=== PATIENT | female | born 1980 | race Caucasian/White ===

== ENCOUNTER 2024-07-24 09:39 | Emergency (ER) | payer SELFPAY ==
[~2024-07-24] VITALS: Ht 162.6 cm; Wt 60.0 kg
[2024-07-24 09:50] VITALS: TEMP 98.2; O2SAT 100
[2024-07-24] MEDS ORDERED: BO1 TP (11:12)
[2024-07-24 11:26] VITALS: BP 118/80; PULSE 64; RESP 16; O2SAT 99
[2024-07-24] MEDS: BACITRACIN ZINC OINT UDPKT TOP ONE (11:26)
== END 2024-07-24 11:28 | disposition home or self-care (01) ==
LOC: ER 09:39
DX: S71.111A Laceration without foreign body, right thigh, initial encounter (principal); W26.8XXA Contact with other sharp object(s), not elsewhere classified, initial encounter; Y93.89 Activity, other specified; Y92.89 Other specified places as the place of occurrence of the external cause; Y99.8 Other external cause status
CPT/HCPCS: 99282